=== PATIENT | male | born 1975 | race Caucasian/White ===

== ENCOUNTER 2018-07-01 08:41 | Emergency (ER) | payer OTHER ==
[~2018-07-01] VITALS: Ht 182.9 cm; Wt 76.0 kg
[2018-07-01 08:49] VITALS: BP 130/80
[2018-07-01] MEDS ORDERED: KETOROLAC 30 MG/1 ML ONE (09:16)
[2018-07-01] MEDS ORDERED: KETOROLAC 30 MG/1 ML IM ONE (09:30)
== END 2018-07-01 09:42 | disposition home or self-care (01) ==
LOC: ED 09:30
DX: S39.012A Strain of muscle, fascia and tendon of lower back, initial encounter (principal); X58.XXXA Exposure to other specified factors, initial encounter; Y93.89 Activity, other specified; Y92.89 Other specified places as the place of occurrence of the external cause; Y99.8 Other external cause status
CPT/HCPCS: 96372; 99283; J1885